=== PATIENT | male | born 1975 | race Caucasian/White ===

== ENCOUNTER 2018-04-27 09:51 | Emergency (ER) | END 2018-04-27 12:46 | disposition home or self-care (01) ==

== ENCOUNTER 2018-06-23 12:25 | Emergency (ER) | END 2018-06-23 16:22 | disposition home or self-care (01) ==

== ENCOUNTER 2018-06-26 07:57 | Emergency (ER) | END 2018-06-26 08:45 | disposition home or self-care (01) ==

== ENCOUNTER 2018-07-03 08:22 | Emergency (ER) | END 2018-07-03 09:20 | disposition home or self-care (01) ==